=== PATIENT | male | born 1990 | race Caucasian/White ===

== ENCOUNTER 2022-01-06 16:45 | Emergency (ER) | payer OTHER, SELFPAY ==
[2022-01-06 16:46] VITALS: BP 150/103; PULSE 108; RESP 16; TEMP 37; O2SAT 93; BMI 20.3
--- NOTE | 2022-01-06 17:30 | EX.ED.GENINJ ---
HPI History of Present Illness Chief Complaint: Head Injury Onset/Context/Timing Onset: Today Mechanism/Context: Blunt Injury Location: Right parietal area Current Severity: Gone Worsened by: Palpation Relieved by: Nothing Associated Symptoms Associated Symptoms: Negative for Parasthesias, Weakness, Loss of function or Loss of consciousness Narrative Narrative: Patient presents with head injury that occurred today. Patient states he was working on a car when it fell off of the sav. Patient states he was hit on the right side of his head by part of the car. Patient denies any loss of consciousness. Patient states he was able to get out from underneath the car and get to his wheelchair. Patient is unsure of his last tetanus. Patient states the pain is mainly on the right side of his head. Patient denies any new paresthesias or weakness. 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 Patient admits to some nausea but denies any vomiting. Patient admits to some pain in his neck. Tetanus Immunization: Unknown [facility] Medical History Hx of recurrent urinary tract infection Hx of spinal cord injury Home Medications dextroamphetamine-amphetamine 10 mg tablet (Adderall) 10 mg PO BID 01/06/22 [History Last Taken Unknown] multivitamin 1 tab PO DAILY 01/06/22 [History Last Taken Unknown] Allergy/AdvReac Type Severity Reaction Status Date / Time Sulfa (Sulfonamide AdvReac Rash Verified 01/06/22 16:49 Antibiotics) Surgical History Hx of splenectomy Social History Smoking Status: Never smoker ROS ROS ED Constitutional Constitutional ED: Denies chills or fever(s) Eyes Eyes: Denies blurry vision or change in vision ENT ENT ED: Denies rhinorrhea or sore throat Cardiovascular Cardiovascular: Denies chest pain or palpitations Respiratory/Chest Respiratory/Chest: Denies cough or dyspnea Gastrointestinal Gastrointestinal: Reports nausea; Denies vomiting Genitourinary Genitourinary ED: Denies dysuria or hematuria Musculoskeletal Musculoskeletal: Reports neck pain; Denies back pain Integumentary Denies abscess or rash Neurologic Neurologic: Reports headache(s); Denies weakness Allergic/Immunologic Allergic/Immunologic ED: Denies mouth swelling or urticaria EXAM Physical Exam Const Vital Signs: 01/06/22 16:46 01/06/22 16:55 Temperature 98.6 F Temperature Source Oral Pulse Rate 108 H Respiratory Rate 16 Respiratory Effort Normal Non-Labored Respiratory Depth Normal Respiratory Pattern Normal Blood Pressure 150/103 H Blood Pressure Mean 118 Pulse Ox 93 Oxygen Delivery Method Room Air Positive well nourished and well developed General Appearance ED: well developed and NAD HEENT Reports TM's clear HEENT Narrative: There is a 3 cm full-thickness linear laceration to the right parietal area of the scalp. There is mild gapping of the wound margins. There is no bleeding. There is a superficial skin tear over the superior aspect of the right ear and periauricular area. There is no bleeding. There is a small hematoma under this area. Tympanic membranes are clear bilaterally. There is no hemotympanum. There is no infraorbital ecchymosis. Oral mucosa is pink and moist. trauma and tenderness Tympanic Membrane ED: Yes TM's clear Eyes PERRL and EOMs intact bilaterally Neck full ROM Chest Wall inspection of chest normal and palpation of chest normal Resp normal respiratory effort and clear to auscultation bilaterally Cardio regular rhythm Rate: regular rate Neuro oriented x3 and CN's II-XII intact bilaterally Flynn Coma Scale: document GCS findings Spontaneous Obeys Commands Oriented 15 Sensorium / Orientation: alert Psych mental status grossly normal PROC Procedures Lacerations Scalp: Length: 3 cm Depth: Sub Q Shape: Linear Prep: Sterile Conditions and Chlorhexadine Laceration repair: Irrigated, Lidocaine with epi and Local Number of Sutures/Jj: 5 Suture Information: Simple and - (Viking) MDM MDM MDM Narrative Medical decision making narrative: LET gel was applied to the wound. Patient was given a tetanus booster. The wound was cleaned and irrigated copious months normal saline. Wound was anesthetized with 1% lidocaine with epinephrine. The wound was closed with 5 simple jj. Patient tolerated the procedure well. Bacitracin dressing was applied. Patient was instructed to follow-up with his primary care physician in 5 days for wound recheck and suture removal. Patient was given head injury instructions. Patient was instructed to return if worse in any way. Patient and family understood and were agreeable with the plan. All questions were answered. Discharge Plan Triage Chief Complaint: Head Injury Other Complaint: Trauma ED Provider: Dallas Mclean Dx/Rx/DC Orders Clinical Impression: Laceration of scalp, Closed head injury Instructions: ED Head Injury (Adult), ED Laceration Scalp Stitches or Viking Prescriptions: No Action multivitamin Tablet 1 tab PO DAILY dextroamphetamine-amphetamine [Adderall] 10 mg Tablet 10 mg PO BID Rx Instructions: administer doses at least 4-6 hours apart Primary Care Provider: MADELIN ORELLANA Referrals: Town Doctor,Out of [NON-STAFF] - 5 Days for suture removal Disposition Disposition: Home, Self Care
[2022-01-06] MEDS: Lidocaine/Epi/Tetracaine 50 ML 1 APPLIC TOPICAL (17:48)
[2022-01-06] MEDS: Lidocaine 1% /Epi 1:100 (20ml) 20 ML Vial INFILT (18:40)
[2022-01-06] MEDS: Diphth,Pertuss(Acell),Tet Vac 0.5 ML Vial IM (18:44)
[2022-01-06 18:57] VITALS: BP 134/78; PULSE 78; RESP 14; TEMP 37.2; O2SAT 99
== END 2022-01-06 18:58 | disposition home or self-care (01) ==
PROVIDERS: Emergency Provider Emergency Medicine; Visit Provider Emergency Medicine
DX: S01.01XA Laceration without foreign body of scalp, initial encounter (principal); G82.20 Paraplegia, unspecified; M54.2 Cervicalgia; W20.8XXA Other cause of strike by thrown, projected or falling object, initial encounter; Y93.89 Activity, other specified; Z23 Encounter for immunization; R11.0 Nausea; Z79.899 Other long term (current) drug therapy; Z90.81 Acquired absence of spleen
CPT/HCPCS: 12002; 90471; 90715; 99284

== ENCOUNTER → 2024-12-13 | Outpatient (CLI) | payer BC, SELFPAY ==
[2024-12-13 15:13] LABS: Color, Urine Yellow (Yellow); Glucose, Dipstick Normal (Normal); Ketone-Dipstick Negative (Negative); Leukocyte Esterase-Dipstick Negative /ul (Negative); Nitrite-Dipstick Negative (Negative); Occult Blood-Urine Negative /ul (Negative); Protein-Dipstick Negative (Negative); Urine Bilirubin Dipstick Negative (Negative); Urine Clarity Clear (Clear); Urine Urobilinogen Normal (Normal)
== END | disposition home or self-care (01) ==
PROVIDERS: PCP Family Medicine
DX: N31.9 Neuromuscular dysfunction of bladder, unspecified (principal); N52.9 Male erectile dysfunction, unspecified; R33.9 Retention of urine, unspecified; Z78.9 Other specified health status
CPT/HCPCS: 36415; 81002; 87086

== ENCOUNTER → 2025-06-04 | Outpatient (CLI) | payer BC, SELFPAY ==
[2025-06-04 17:53] LABS: Barbiturate Urine NEGATIVE (< 200 ng/mL); Benzodiazepine Urine NEGATIVE (< 200 ng/mL); PCP Urine NEGATIVE (< 25 ng/mL); THC Urine NEGATIVE (< 50 ng/mL)
== END | disposition home or self-care (01) ==
LOC: MTLAB 15:52
PROVIDERS: PCP Family Medicine; Referring Provider Family Medicine; Visit Provider Family Medicine
DX: F98.8 Other specified behavioral and emotional disorders with onset usually occurring in childhood and adolescence (principal)
CPT/HCPCS: 80307